=== PATIENT | female | born 1970 ===

== ENCOUNTER → 2018-10-27 21:41 | Outpatient (REF) | payer OTHER, SELFPAY ==
[2018-10-27 22:21] LABS: Alanine Aminotransferase 28 IU/L (9-52); Albumin 3.9 g/dL (3.5-5.0); Albumin Globulin Ratio 1.5 (1.0-2.8); Alkaline Phosphatase 46 U/L (38-126); Aspartate Aminotransferase 19 IU/L (14-36); BUN Creatinine Ratio 16.3 (6-22); Bilirubin Total 0.5 mg/dL (0.2-1.3); Blood Urea Nitrogen 13 mg/dL (7-17); Carbon Dioxide 25 mmol/L (22-32); Chloride 104 mmol/L (98-107); Estimated Glomerular Filt Rate > 60.0 mL/min (>60); Globulin 2.6 g/dL (1.7-4.1); Glucose 88 mg/dL (70-100); HEMOLYSIS < 15 (0-50); Potassium 3.9 mmol/L (3.4-5.1); Sodium 137 mmol/L (137-145); Total Protein 6.5 g/dL (6.3-8.2)
[2018-10-27 23:03] LABS: Hepatitis B Surface Antigen NEGATIVE s/c (NEGATIVE)
[2018-10-27 23:12] LABS: Hep C Virus Ab w/Reflex Quant NEGATIVE s/c (NEGATIVE)
[2018-10-30 12:21] LABS: RPR Screen Nonreactive (Nonreactive)
[2018-10-30 19:58] LABS: HIV Ag/Ab, 4th Gen Nonreactive (Nonreactive)
[2018-10-31 13:53] LABS: HSV 2 IGG AB < 0.90 index (< 0.90)
[2018-10-31 14:47] LABS: Hepatitis B Core Antibody Nonreactive (Nonreactive); Hepatitis B Surf AB Imm QUANT 24 mIU/mL (> 9)
== END ==
LOC: LAB 21:41
PROVIDERS: Visit Provider Naturopath
DX: E83.119 Hemochromatosis, unspecified (principal); Z11.3 Encounter for screening for infections with a predominantly sexual mode of transmission
CPT/HCPCS: 36415; 80053; 82728; 86317; 86592; 86695; 86696; 86703; 86704; 86803; 87340; 87491; 87591